=== PATIENT | female | born 1940 | race Caucasian/White ===

== ENCOUNTER 2016-11-03 20:17 | Emergency (ER) | payer BC, OTHER ==
[~2016-11-03] VITALS: Ht 157.5 cm; Wt 49.9 kg
[2016-11-03] MEDS ORDERED: PROTPAK PO (20:37)
[2016-11-03] MEDS ORDERED: LIDOCAINE 2% MDV 20 ML VIAL SC ONE (21:15)
--- NOTE | 2016-11-03 21:20 | REPUSA ---
CT of the facial bones without contrast Clinical history: Pain, fall. Technique: Multiple axial CT images were obtained through the facial bones and paranasal sinuses util izing 3 mm axial slices without administration of contrast. Coronal and sagittal reconstructions were also obtained. Findings: The visualized paranasal sinuses are clear. The osteomeatal complexes are patent bilaterall y. The nasal septum is midline. The visualized mastoid air cells are clear. The osseous structures do not demonstrate any acute abnormalities. The superficial soft tissues are within normal limits. Impression: Unremarkable CT examination of the facial bones and paranasal sinuses.
[2016-11-03] MEDS ORDERED: NS 1,000 ML IV SCH (22:17)
[2016-11-03] MEDS ORDERED: MORPHINE 2 MG/ML 1ML SYRINGE IV PRN (22:30)
[2016-11-03] MEDS ORDERED: KETOROLAC 30 MG/ML VIAL (J1885) IV ONE (22:30)
[2016-11-03] MEDS ORDERED: ONDANSETRON 4MG/2ML VIAL (J2405) IV ONE (22:30)
[2016-11-03] MEDS ORDERED: CLEO300C2 PO (22:38)
[2016-11-03] MEDS ORDERED: CLINDAMYCIN 150 MG CAP PO ONE (22:45)
[2016-11-03 22:49] VITALS: BP 138/61
--- NOTE | 2016-11-04 10:17 | RO ---
DATE OF PROCEDURE: 11/03/2016 PREPROCEDURE DIAGNOSIS: POSTPROCEDURE DIAGNOSIS: SURGEON: Anna Marie Gerardo MD TRAFFIC RATE COMPUTER: ANESTHESIA: Ms. Miller was on a walk this evening and she tripped and fell, hitting her upper lip. She suffered a laceration to the upper lip, and I was called to repair the laceration. DESCRIPTION OF PROCEDURE: There is an irregular laceration involving the filtrum and cupid's bow area of the lip. This is approximately 3 cm in length. After prepping and draping the patient, the area was anesthetized with Lidocaine and was repaired in layers. Vicryl was placed deep and several #4-0 nylon sutures were placed to approximate the edges. The patient tolerated the procedure well. I discussed the case with the PA in the emergency room, and the patient will be discharged with prescription for clindamycin and to followup with Dr. Yap's group on Thursday.
== END 2016-11-03 23:01 | disposition home or self-care (01) ==
LOC: M ED 21:35
DX: S01.511A Laceration without foreign body of lip, initial encounter (principal); S00.83XA Contusion of other part of head, initial encounter; S02.5XXA Fracture of tooth (traumatic), initial encounter for closed fracture; W01.198A Fall on same level from slipping, tripping and stumbling with subsequent striking against other object, initial encounter; Y92.480 Sidewalk as the place of occurrence of the external cause; Y93.01 Activity, walking, marching and hiking; Y99.9 Unspecified external cause status